=== PATIENT | female | born 2000 | race Caucasian/White ===

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

== ENCOUNTER 2019-05-30 17:48 | Emergency (ER) | payer OTHER ==
[2019-05-30 19:39] VITALS: BP 113/60
--- NOTE | 2019-05-30 20:43 | UC ---
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 Watery drainage from RIGHT eye since yesterday. LEFT ear pain since Monday. No measured fever. Taking tylenol 500mg prn w/ pain relief; last dose today 1500. " + cold sx + congestion.cough.raspy voice. + nasal dc. -no fgevers, no wheezing. no SOB - History of Current Complaint Chief Complaint: UCEye Stated Complaint: SORE EYE,EAR PAIN Time Seen by Provider: 05/30/19 19:35 Hx Last Menstrual Period: IUD Pain Intensity: 6 - Allergies/Home Medications Allergies/Adverse Reactions: Allergies Allergy/AdvReac Type Severity Reaction Status Date / Time No Known Allergies Allergy Verified 05/30/19 19:35 PMH/Surg Hx/FS Hx/Imm Hx Previously Healthy: Yes - Surgical History Surgical History: Yes Surgery Procedure, Year, and Place: OVARIAN CYST SURGERY 03/04/15. wisdom teeth - Family History Known Family History: Positive: Non-Contributory - Social History Alcohol Use: Occasionally Substance Use Type: None Smoking Status (MU): Former Smoker Type: Cigarettes Amount Used/How Often: 1-2 cigs per wk Length of Time of Smoking/Using Tobacco: 1 yr Have You Smoked in the Last Year: No - Immunization History Most Recent Influenza Vaccination: fall 2015 Most Recent Pneumonia Vaccination: none Vaccination Up to Date: Yes Review of Systems All Other Systems Reviewed And Are Negative: Yes Constitutional: Positive: Negative. Negative: Fever Skin: Positive: Negative Eyes: Positive: Other - see above. no crusting dc ENT: Positive: Ear Ache, Nasal Discharge Respiratory: Positive: Cough - mild. Negative: Shortness Of Breath Cardiovascular: Positive: Negative Gastrointestinal: Positive: Negative Genitourinary: Positive: Negative Motor: Positive: Negative Neurovascular: Positive: Negative Musculoskeletal: Positive: Negative Neurological: Positive: Negative Psychological: Positive: Negative Is Patient Immunocompromised?: No Physical Exam Triage Information Reviewed: Yes Appearance: Well-Appearing, No Pain Distress, Well-Nourished Vital Signs: Initial Vital Signs Temp 98.6 F 05/30/19 19:35 Pulse 88 05/30/19 19:35 Resp 16 05/30/19 19:35 BP 113/60 05/30/19 19:35 Pulse Ox 100 05/30/19 19:35 Vital Signs Reviewed: Yes Eyes: Positive: Conjunctiva Clear, Other: - rt lateral upper lid stye. Negative : Conjunctiva Inflamed ENT Exam: Normal ENT: Positive: Pharynx normal, TMs normal - midl left serous fluid., Uvula midline. Negative: TM bulging, TM dull, TM red, Tonsillar swelling, Sinus tenderness Dental Exam: Normal Neck exam: Normal Neck: Positive: Supple, Nontender, No Lymphadenopathy Respiratory Exam: Normal Respiratory: Positive: Chest non-tender, Lungs clear, Normal breath sounds, No respiratory distress, No accessory muscle use. Negative: Crackles, Rhonchi, Stridor, Wheezing Cardiovascular Exam: Normal Cardiovascular: Positive: RRR, No Murmur, Pulses Normal Abdominal Exam: Normal Abdomen Description: Positive: Nontender, Soft Musculoskeletal Exam: Normal Neurological Exam: Normal Psychological Exam: Normal Skin Exam: Normal Skin: Negative: Rashes Eye Complaint Course/Dx - Course Course Of Treatment: Rt eye stye - has gotten erythrmycin here in past for same sx last yr and treated w/ same. +URI sx - flonase nsals spray - Differential Dx/Diagnosis Differential Diagnosis/HQI/PQRI: Other - stye, URI Provider Diagnosis: Stye, Upper respiratory infection Discharge ED - Sign-Out/Discharge Documenting (check all that apply): Patient Departure All imaging exams completed and their final reports reviewed: No Studies - Discharge Plan Condition: Stable Disposition: HOME Prescriptions: Erythromycin TOPICAL GEL* [Erythromycin OPTH OINT*] 1 applic TOPICAL TID 5 Days #1 oint Patient Education Materials: Stye (ED), Upper Respiratory Infection (ED) Referrals: Sylvia Camacho MD [Primary Care Provider] - 1 Week Additional Instructions: You can use flonase nasal spray to help your left ear symptoms and nasal congestion. The antibiotic ointment will help your eye. Avoid eye make up until resolved. Continue with warm compresses. - Billing Disposition and Condition Condition: STABLE Disposition: Home
== END 2019-05-30 20:52 | disposition home or self-care (01) ==
LOC: UCCORT 17:48
DX: H00.011 Hordeolum externum right upper eyelid (principal); J06.9 Acute upper respiratory infection, unspecified; Z87.891 Personal history of nicotine dependence
CPT/HCPCS: 99212; G0463

== ENCOUNTER 2019-09-01 09:21 | Emergency (ER) | payer OTHER ==
--- NOTE | 2019-09-01 12:07 | UC ---
Back Pain HPI - HPI Summary HPI Summary: 19 y/o female presents to the urgent care c/o constant pain in lower back that radiates to whole body that started Monday night. Pt states that she has taken ibuprofen PO at home without relief; patient last dose taken at 0930 this morning. Pt states she has tried ice and hot compresses without relief. Pt states that pain came out of no where. She also developed yesterday, nasal congestion w/ clear nasal discharge. This morning she developed mild FRAIRE, sore throat and dry cough. Pain is 8/10 ache and dull. Pt has taken Nyquill PO and Tylenol PO to alleviate symptoms. Last dose of Tylenol taken was around 0930am. Pt denies fever, saddle anesthesia, urinary or fecal incontinence, numbness or tingling sensation over the lower extremities, urinary symptoms, flank pain, abdominal pain, SOB, chest pain, rash, neck pain, N/V/d. - History of Current Complaint Stated Complaint: BACK PAIN Time Seen by Provider: 09/01/19 12:06 Hx Obtained From: Patient Hx Last Menstrual Period: IUD ?: No Onset/Duration: Gradual Onset, Lasting Days - 1 day, Still Present, Worse Since - this morning w/ body aches and lower back pain Timing: Constant Severity Initially: Mild Severity Currently: Moderate Pain Intensity: 8 - lower back pain Pain Scale Used: 0-10 Numeric Back Pain: Is Discrete @ - lower back Character: Dull Aggravating Factor(s): Cough, Other - body ahces, nasal congestion and chills Alleviating Factor(s): Rest, OTC Meds - tylenol PO this morning Associated Signs And Symptoms: Positive: Negative. Negative: Swelling, Redness , Bruising, Fever, Weakness, Numbness, Tingling, Abdominal Pain, Flank Pain, Bladder Incontinence, Bowel Incontinence, Weight Loss, Pain with Weight Bearing , Other - Risk Factors AAA Risk Factors: Negative TAD Risk Factors: Negative Cauda Equina Risk Factors: Negative - Allergies/Home Medications Allergies/Adverse Reactions: Allergies Allergy/AdvReac Type Severity Reaction Status Date / Time No Known Allergies Allergy Verified 09/01/19 12:12 PMH/Surg Hx/FS Hx/Imm Hx Previously Healthy: Yes Respiratory History: Asthma - Surgical History Surgical History: Yes Surgery Procedure, Year, and Place: OVARIAN CYST SURGERY 8/12/15. wisdom teeth - Family History Known Family History: Positive: None - Pt denies FMHX, Non-Contributory - Social History Occupation: Employed Full-time Lives: With Family Alcohol Use: Occasionally Substance Use Type: None Smoking Status (MU): Former Smoker Type: Cigarettes Amount Used/How Often: 1-2 cigs per wk Length of Time of Smoking/Using Tobacco: 1 yr Have You Smoked in the Last Year: No - Immunization History Most Recent Influenza Vaccination: fall 2015 Most Recent Pneumonia Vaccination: none Vaccination Up to Date: Yes Review of Systems All Other Systems Reviewed And Are Negative: Yes Constitutional: Positive: Chills, Fatigue, Other - body aches Skin: Positive: Negative Eyes: Positive: Negative ENT: Positive: Nasal Discharge - clear, Sinus Congestion, Other - moderate PND Respiratory: Positive: Cough - dry Cardiovascular: Positive: Negative Gastrointestinal: Positive: Negative Genitourinary: Positive: Negative Motor: Positive: Negative Neurovascular: Positive: Negative Musculoskeletal: Positive: Myalgia, Other: - lower back pain Neurological: Positive: Headache Psychological: Positive: Negative Is Patient Immunocompromised?: No Physical Exam - Summary Physical Exam Summary: VITAL SIGNS: Reviewed. GENERAL: Patient is a well developed and nourished female who is sitting comfortably in the examining table. Patient is not in any acute respiratory distress. HEAD AND FACE: No signs of trauma. No ecchymosis, hematomas or skull depressions. No sinus tenderness. EYES: PERRLA, EOMI x 2, No injected conjunctiva, no nystagmus. No photophobia. EARS: Hearing grossly intact. Ear canals and tympanic membranes are within normal limits. MOUTH: Positive pharynx with mild erythema, no exudates, No B/L tonsillar enlargement , no exudate. Uvula in midline. edematous nasal mucosa w/ clear nasal discharge, clear PND NECK: Supple, trachea is midline, Positive anterior cervical lymphadenopathy, no JVD, no carotid bruit, no c-spine tenderness, neck with full ROM. No meningeal signs, no Kernig's or brudzinskis signs. CHEST: Symmetric, no tenderness at palpation LUNGS: Clear to auscultation bilaterally. No wheezing or crackles. CVS: Regular rate and rhythm, S1 and S2 present, no murmurs or gallops appreciated. ABDOMEN: Soft, non-tender. No signs of distention. No rebound no guarding, and no masses palpated. Bowel sounds are normal. EXTREMITIES: FROM in all major joints, no edema, no cyanosis or clubbing. NEURO: Alert and oriented x 3. No acute neurological deficits. Pt follows commands. SKIN: Dry and warm Triage Information Reviewed: Yes Back Pain Course/Dx - Course Course Of Treatment: 19 y/o female presents to the urgent care c/o constant pain in lower back that radiates to whole body that started Monday night. Pt states that she has taken ibuprofen PO at home without relief; patient last dose taken at 0930 this morning. Pt states she has tried ice and hot compresses without relief. Pt states that pain came out of no where. She also developed yesterday, nasal congestion w/ clear nasal discharge. This morning she developed mild FRAIRE, sore throat and dry cough. Pain is 8/10 ache and dull. Pt has taken Nyquill PO and Tylenol PO to alleviate symptoms. Last dose of Tylenol taken was around 0930am. Pt denies fever, saddle anesthesia, urinary or fecal incontinence, numbness or tingling sensation over the lower extremities, urinary symptoms, flank pain, abdominal pain, SOB, chest pain, rash, neck pain, N/V/d. Hx obtained. Pt with pharyngitis on examination. Rapid strep ordered, result: negative.Influenza A&B ordered: result: Influenza B positive. UA:negative. Pt Rx Tamiflu and ibuprofen PO to alleviate symptoms. Advised on hand washing and wearing a mask to avoid spreading. Pt advised to rest, increase fluid intake, eat well and avoid strenuous exercise. If symptoms do not improve or worsen advised to return to the urgent care or f/u with her PCP for further evaluation and treatment. Pt understood and agreed w/ plan of care - Differential Dx/Diagnosis Differential Diagnosis/HQI/PQRI: Compressive Cord Syndrome, Herniated Disc, Renal Colic, Strain, Sprain, Other - influenza, UTI Provider Diagnosis: Influenza B, Lower back pain Discharge ED - Sign-Out/Discharge Documenting (check all that apply): Patient Departure - d/C home All imaging exams completed and their final reports reviewed: No Studies - Discharge Plan Condition: Stable Disposition: HOME Prescriptions: Ibuprofen TAB* [Motrin TAB* 600 MG] 600 mg PO Q6H PRN #30 tab PRN Reason: Pain - Moderate Oseltamivir CAP* [Tamiflu CAP*] 75 mg PO BID #10 cap Patient Education Materials: Influenza (DC) Forms: *Work Release Referrals: Sylvia Camacho MD [Primary Care Provider] - 3 Days Additional Instructions: 1- Please take the full course of the antiviral to avoid resistance. Encourage hand washing and wear a mask to avoid spreading. 2-Please take Ibuprofen PO q6-8hrs prn as instructed after meals to alleviate fever, and body aches and lower back paint. Increase fluid intake, eat well, rest and avoid strenuous exercise 3-If symptoms do not improve or worsen please return to the urgent care or f/u with your PCP in 3 days for further evaluation and treatment. - Billing Disposition and Condition Condition: STABLE Disposition: Home
[2019-09-01 12:12] VITALS: BP 123/86
[2019-09-01 12:56] LABS: Influenza B Molecular POSITIVE (Negative)
[2019-09-01] MEDS ORDERED: Ibuprofen TAB* 400 MG PO ONE (13:17)
== END 2019-09-01 13:34 | disposition home or self-care (01) ==
LOC: UCCORT 09:21
DX: J10.1 Influenza due to other identified influenza virus with other respiratory manifestations (principal); M54.5 Low back pain; J45.909 Unspecified asthma, uncomplicated; Z87.891 Personal history of nicotine dependence
CPT/HCPCS: 81003; 87651; 99212; A9270-GY; G0463

== ENCOUNTER 2019-09-13 17:06 | Emergency (ER) | payer OTHER ==
[2019-09-13 18:17] VITALS: BP 119/72
--- NOTE | 2019-09-13 18:25 | UC ---
Eye Complaint HPI - HPI Summary HPI Summary: 19-year-old female who had the flu last week and this week she has continued with head congestion and now has developed sinus pressure, postnasal drainage. She also had right red eye yesterday with some purulent drainage and today both eyes are red with purulent drainage. - History of Current Complaint Chief Complaint: UCGeneralIllness Stated Complaint: EYE COMPLAINT Time Seen by Provider: 09/13/19 18:09 Hx Obtained From: Patient Hx Last Menstrual Period: Mirana ?: No Onset/Duration: Gradual Onset, Lasting Days Timing: Constant Severity Initially: Moderate - Patient had influenza last week Severity Currently: Moderate Pain Intensity: 6 Location of Injury: Other - No injury Aggravating Factor(s): Nothing Alleviating Factor(s): Nothing Associated Signs And Symptoms: Positive: Drainage (Purulent) - Right eye was red yesterday with purulent drainage and today both eyes are red with purulent drainage - Allergies/Home Medications Allergies/Adverse Reactions: Allergies Allergy/AdvReac Type Severity Reaction Status Date / Time No Known Allergies Allergy Verified 09/13/19 18:17 Home Medications: Home Medications Levonorgestrel (Iud) [Mirena IUD] 20 mcg IU DAILY 04/14/18 [History Confirmed ] Ibuprofen TAB* [Motrin TAB* 600 MG] 600 mg PO Q6H PRN #30 tab 09/01/19 [Rx Confirmed 09/13/19] Amoxicillin PO (*) [Amoxicillin 875 MG (*)] 875 mg PO BID 10 Days #20 tab [Rx] Tobramycin 0.3% OPHTH.REILLY* 1 drop BOTH EYES Q4H #1 btl 09/13/19 [Rx] PMH/Surg Hx/FS Hx/Imm Hx Previously Healthy: Yes - Surgical History Surgical History: Yes Surgery Procedure, Year, and Place: OVARIAN CYST SURGERY 03/04/15. wisdom teeth - Family History Known Family History: Positive: None - Pt denies FMHX, Non-Contributory - Social History Alcohol Use: Occasionally Substance Use Type: None Substance Use Comment - Amount & Last Used: 09/01/19 Smoking Status (MU): Former Smoker Type: Cigarettes Amount Used/How Often: 1-2 cigs per wk Length of Time of Smoking/Using Tobacco: 1 yr Have You Smoked in the Last Year: No - Immunization History Most Recent Influenza Vaccination: fall 2015 Most Recent Pneumonia Vaccination: none Vaccination Up to Date: Yes Review of Systems All Other Systems Reviewed And Are Negative: Yes Constitutional: Positive: Fever Eyes: Positive: Drainage - Purulent drainage yesterday in the right eye, today both eyes., Eye Redness ENT: Positive: Nasal Discharge, Sinus Congestion, Sinus Pain/Tenderness Respiratory: Positive: Cough - Occasional productive cough with yellowish sputum. Is Patient Immunocompromised?: No Physical Exam Triage Information Reviewed: Yes Appearance: Well-Appearing, No Pain Distress, Well-Nourished Vital Signs: Initial Vital Signs Temp 99.1 F 09/13/19 18:12 Pulse 87 09/13/19 18:12 Resp 16 09/13/19 18:12 BP 119/72 09/13/19 18:12 Pulse Ox 100 09/13/19 18:12 Vital Signs Reviewed: Yes Eyes: Positive: Conjunctiva Inflamed, Discharge - Small amount of yellow purulent drainage both eyes. ENT: Positive: Pharynx normal - Yellow postnasal drainage, Nasal congestion, Nasal drainage - Yellow nasal coryza, TMs normal, Sinus tenderness - Tender over the maxillary sinuses bilaterally., Uvula midline Neck: Positive: Supple, Nontender, No Lymphadenopathy Respiratory: Positive: Lungs clear, Normal breath sounds, No respiratory distress, No accessory muscle use Cardiovascular: Positive: RRR, No Murmur, Pulses Normal, Brisk Capillary Refill Musculoskeletal Exam: Normal Neurological Exam: Normal Psychological Exam: Normal Skin Exam: Normal Eye Complaint Course/Dx - Course Course Of Treatment: Patient is comfortable here. - Differential Dx/Diagnosis Provider Diagnosis: Bilateral conjunctivitis, Sinusitis Discharge ED - Sign-Out/Discharge Documenting (check all that apply): Patient Departure All imaging exams completed and their final reports reviewed: No Studies - Discharge Plan Condition: Good Disposition: HOME Prescriptions: Amoxicillin PO (*) [Amoxicillin 875 MG (*)] 875 mg PO BID 10 Days #20 tab Tobramycin 0.3% OPHTH.REILLY* 1 drop BOTH EYES Q4H #1 btl Patient Education Materials: Sinusitis (ED), Conjunctivitis (ED) Forms: *Work Release Referrals: Sylvia Camacho MD [Primary Care Provider] - Additional Instructions: Good handwashing, follow-up with your primary care provider if no improvement in 3-4 days. If you continue to have red eyes and pus drainage you are to follow-up with an wrapper stemmer hand on Monday. - Billing Disposition and Condition Condition: GOOD Disposition: Home - Attestation Statements Provider Attestation: Per institutional requirements, I have reviewed the chart, however, I was not consulted specifically or made aware of this patient by the midlevel provider. I did not personally evaluate, interact with, or disposition this patient. EK
== END 2019-09-13 18:42 | disposition home or self-care (01) ==
LOC: UCCORT 17:06
DX: J32.9 Chronic sinusitis, unspecified (principal); H10.9 Unspecified conjunctivitis; Z87.891 Personal history of nicotine dependence
CPT/HCPCS: 99212; G0463

== ENCOUNTER 2019-10-07 13:03 | Emergency (ER) | payer OTHER ==
[2019-10-07 14:42] VITALS: BP 113/69
--- NOTE | 2019-10-07 14:53 | UC ---
Lower Extremity/Ankle HPI - HPI Summary HPI Summary: 19 -year-old female with no past medical history presenting with left foot pain for one week. Patient reports the pain has been progressive, starting in her midfoot and radiating to her heel. Patient is often standing on her feet at work. Hx plantar fasciitis. No trauma. No fevers. - History of Current Complaint Chief Complaint: UCLowerExtremity Stated Complaint: L FOOT COMP Time Seen by Provider: 10/07/19 14:36 Hx Last Menstrual Period: unknown r/t IUD placement Pain Intensity: 8 - Allergies/Home Medications Allergies/Adverse Reactions: Allergies Allergy/AdvReac Type Severity Reaction Status Date / Time No Known Allergies Allergy Verified 10/07/19 14:39 Home Medications: Home Medications Levonorgestrel (Iud) [Mirena IUD] 20 mcg IU DAILY 04/14/18 [History Confirmed ] PMH/Surg Hx/FS Hx/Imm Hx Previously Healthy: Yes - Surgical History Surgical History: Yes Surgery Procedure, Year, and Place: ovarian cyst sx 2014. wisdom teeth - Family History Known Family History: Positive: None - Pt denies FMHX, Non-Contributory - Social History Occupation: Employed Full-time Alcohol Use: None Substance Use Type: None Substance Use Comment - Amount & Last Used: 09/01/19 Smoking Status (MU): Former Smoker Type: Cigarettes Amount Used/How Often: 1-2 cigs per wk Length of Time of Smoking/Using Tobacco: 1 yr Have You Smoked in the Last Year: No - Immunization History Most Recent Influenza Vaccination: fall 2015 Most Recent Pneumonia Vaccination: none Vaccination Up to Date: Yes Review of Systems All Other Systems Reviewed And Are Negative: Yes Musculoskeletal: Positive: Arthralgia Physical Exam - Summary Physical Exam Summary: General: Well appearing, no distress Cardiovascular: Skin is well perfused Pulmonary: No respiratory distress, no tachypnea Abdomen: Non-distended Skin: Warm, pink, dry MSK: no edema, tenderness along sole of L foot as well as dorsum of L foot. 2+ DP pulse. No ankle tenderness. Psych: Normal affect Neuro: A&Ox3 Vital Signs: Initial Vital Signs Temp 36.8 C 10/07/19 14:40 Pulse 96 10/07/19 14:40 Resp 17 10/07/19 14:40 BP 113/69 10/07/19 14:40 Pulse Ox 100 10/07/19 14:40 Lower Extremity Course/Dx - Course Course Of Treatment: 19 y/o F w atraumatic L foot pain for one week, hx plantar fasciitis. No recent trauma. No fevers. Likely c/w plantar fasciitis. Advised to try motrin/NSAIDs, inserts and stretching. Return for worsening - Differential Dx/Diagnosis Provider Diagnosis: Left foot pain Discharge ED - Sign-Out/Discharge Documenting (check all that apply): Patient Departure All imaging exams completed and their final reports reviewed: No Studies - Discharge Plan Condition: Stable Disposition: HOME Patient Education Materials: Plantar Fasciitis (ED) Referrals: Sylvia Camacho MD [Primary Care Provider] - If Needed Additional Instructions: You were seeen at urgent care for foot pain. This is likely secondary to plantar fasciitis. You can take motrin at home. Try sole inserts. Stay off your feet if possible and try stretching exercises. If any lab work or imaging was not completed at the time of discharge, you will be called with any relevant results. Please seek medical attention or go to the emergency department for any worsening or concerning symptoms. Please follow up with your primary care doctor in 2-3 days. It was a pleasure taking care of you today. - Billing Disposition and Condition Condition: STABLE Disposition: Home
== END 2019-10-07 15:08 | disposition home or self-care (01) ==
LOC: UCCORT 13:03
DX: M25.572 Pain in left ankle and joints of left foot (principal); Z87.891 Personal history of nicotine dependence
CPT/HCPCS: 99211; G0463

== ENCOUNTER 2019-10-14 14:38 | Emergency (ER) | payer OTHER ==
--- NOTE | 2019-10-14 15:36 | UC ---
[facility] HPI HPI Summary: 19-year-old female who awakened this morning with red left eye and pus drainage. No history of cold symptoms. She denies any pain. She does not wear contact lenses. She states she had pinkeye approximately 2 weeks ago and was treated with an antibiotic however she is not sure which one. She has no other complaints. Telehealth PMH Previously Healthy: Yes Endocrine/Hematology History: Denies: Hx Diabetes, Hx Thyroid Disease Cardiovascular History: Denies: Hx Hypertension Respiratory History: Reports: Hx Asthma Denies: Hx Chronic Obstructive Pulmonary Disease (COPD) GI History: Denies: Hx Ulcer Psychiatric History: Denies: Hx Eating Disorder, Hx of Violent Episodes Against Others - Surgical History Surgery Procedure, Year, and Place: ovarian cyst sx 2015. wisdom teeth Infectious Disease History: No - Family History Known Family History: Positive: None - Pt denies FMHX, Non-Contributory - Social History Alcohol Use: Occasionally Hx Substance Use: No Substance Use Type: Reports: None Substance Use Comment - Amount & Last Used: 09/01/19 Hx Tobacco Use: No Smoking Status (MU): Former Smoker Type: Cigarettes Amount Used/How Often: 1-2 cigs per wk Length of Time of Smoking/Using Tobacco: 1 yr Have You Smoked in the Last Year: No UC Telehealth ROS All Other Systems Reviewed And Are Negative: Yes Constitutional: Negative Positive: Drainage, Erythema - Yellow pus drainage today with red eye, not painful. No recent cold symptoms. ENT: Negative Cardiovascular: Negative Respiratory: Negative Gastrointestinal: Negative Genitourinary: Negative Musculoskeletal: Negative Skin: Negative Neurological/Mental Status: Negative Psychological: Normal Telehealth PE Telehealth Physical Exam: This visit was done via telehealth with the patient at home therefore no physical exam was done. Psychiatric: Positive: Normal [facility] Course/Dx Assessment/Plan: This visit was a telehealth visit. According to the history the patient gives, I believe this is a bacterial conjunctivitis. A prescription was sent to her pharmacy. Provider Diagnoses: Conjunctivitis Telehealth Disposition Provider Recommendation for Treatment: Urgent Care Telehealth Visit: Patient Consented Verbally to Telehealth Visit Telehealth Patient Statement: The patient should understand that they are communicating with their provider via a secure communication platform and that all the same privacy and confidentiality rules apply. They will also be responsible for copayments or coinsurances that apply to any Telehealth visit. Patient Identifiers: 2 Patient Identifiers Verified for Telehealth Visit Telehealth Visit Start Time: 15:10 Telehealth Visit End Time: 15:20 Telehealth Provider Attestation: The above services were appropriate to provide in a Telehealth setting.
== END 2019-10-14 15:43 | disposition home or self-care (01) ==
LOC: UCCORT 14:38
DX: H10.32 Unspecified acute conjunctivitis, left eye (principal); Z87.891 Personal history of nicotine dependence
CPT/HCPCS: 99212; G0463; Q3014